=== PATIENT | female | born 1980 | race Caucasian/White ===

== ENCOUNTER 2017-03-05 19:19 | Inpatient (IN) | payer MEDICAID ==
[~2017-03-05] VITALS: Ht 165.1 cm; Wt 69.9 kg
[~2017-03-05 19:19] MED LIST: CIPR500T3 PO; MAGN400T7 PO; MULT-6 PO; NICO1PAT10 TD; PANT40TA3 PO; PROM25SU34 PO; THIA100T10 PO; TRAM-28 PO
[2017-03-05] MEDS ORDERED: OXYMETAZOLINE NASAL SPRAY 0.05%, 15ML ONE (19:28)
[2017-03-05] MEDS ORDERED: SODIUM CHLORIDE 0.9% 1,000 ML IV ONE (19:33)
[2017-03-05] MEDS ORDERED: ONDANSETRON 2MG/ML, 2ML ONE (19:44)
[2017-03-05] MEDS ORDERED: PANTOPRAZOLE 40 MG IV ONE (19:44)
[2017-03-05] MEDS ORDERED: HYDROmorphone 1 MG/ML, 1ML ONE ×2 (19:44→21:13)
[2017-03-05] MEDS: HYDROmorphone 1 MG/ML, 1ML IVPush PRN ×2 (19:52→21:15)
[2017-03-05] MEDS ORDERED: SODIUM CHLORIDE 0.9% 1,000ML IVBOLUS ONE ×2 (20:00→21:00)
[2017-03-05] MEDS ORDERED: ONDANSETRON 2MG/ML, 2ML IVPush ONE (20:00)
[2017-03-05] MEDS ORDERED: SODIUM CHLORIDE FLUSH 10ML SYR IVF ONE (20:00)
[2017-03-05] MEDS ORDERED: PANTOPRAZOLE 40 MG IV IVPush ONE (20:00)
[2017-03-05 20:12] LABS: ASPARTATE AMINO TRANSFERASE 95 U/L (15-37); BLOOD UREA NITROGEN 11 mg/dL (7-18)
[2017-03-05] MEDS ORDERED: LORazepam 2 MG/ML, 1ML ONE (20:33)
[2017-03-05] MEDS ORDERED: LORazepam 2 MG/ML, 1ML IVPush ONE (21:00)
[2017-03-05] MEDS ORDERED: THIAMINE 100 MG/ML, 2ML IM ONE (21:00)
[2017-03-05] MEDS ORDERED: SODIUM CHLORIDE 0.9% 1,000 ML IV SCH (21:19)
[2017-03-05] MEDS ORDERED: THIAMINE 100MG TABLET ONE (21:28)
[2017-03-05] MEDS ORDERED: LABETALOL 5MG/ML, 20ML IVPush PRN (21:30)
[2017-03-05] MEDS ORDERED: ACETAMINOPHEN 325 MG TABLET PO PRN (21:30)
[2017-03-05] MEDS ORDERED: hydrALAzine 20 MG/ML, 1ML IV PRN (21:30)
[2017-03-05] MEDS ORDERED: DOCUSATE 100 MG CAPSULE PO PRN (21:30)
[2017-03-05] MEDS ORDERED: LORazepam 2 MG/ML, 1ML IV PRN ×3 (21:30)
[2017-03-05] MEDS ORDERED: ENALAPRILAT 1.25 MG/ML, 2ML IV PRN (21:30)
[2017-03-05] MEDS ORDERED: ONDANSETRON 2MG/ML, 2ML IVPush PRN (21:30)
[2017-03-05] MEDS ORDERED: POLYETHYLENE GLYCOL 17 GM PACKET PO PRN (21:30)
[2017-03-05] MEDS ORDERED: LORazepam 0.5MG TABLET PO PRN (21:30)
[2017-03-05] MEDS ORDERED: THIAMINE 100MG TABLET PO ONE (22:00)
[2017-03-05] MEDS: LORazepam 1MG TABLET PO PRN (22:49)
[2017-03-05] MEDS: FAMOTIDINE 20 MG TABLET PO SCH (23:05)
[2017-03-05] MEDS: AMPICILLIN/SULBACTAM 3 GM in SODIUM CHLORIDE 0.9% 100 ML IV SCH (23:05)
[2017-03-05] MEDS: NICOTINE 14MG/24 HR PATCH.TD24 TD SCH (23:05)
[2017-03-05 23:11] VITALS: BP 142/99
[2017-03-06] MEDS: OXYcodone IR 5MG TABLET PO PRN ×4 (00:21→22:33)
[2017-03-06 02:46] VITALS: BP 145/83
[2017-03-06] MEDS: LORazepam 1MG TABLET PO PRN ×5 (03:44→17:53)
[2017-03-06] MEDS: AMPICILLIN/SULBACTAM 3 GM in SODIUM CHLORIDE 0.9% 100 ML IV SCH ×3 (04:54→17:52)
[2017-03-06 05:47] LABS: BLOOD UREA NITROGEN 11 mg/dL (7-18)
[2017-03-06 07:00] VITALS: BP 140/97
[2017-03-06] MEDS: MULTIVITAMINS/MINERALS TABLET PO SCH (09:14)
[2017-03-06] MEDS: FOLIC ACID 1 MG TABLET PO SCH (09:14)
[2017-03-06] MEDS: FAMOTIDINE 20 MG TABLET PO SCH ×2 (09:14→20:28)
[2017-03-06] MEDS: THIAMINE 100MG TABLET PO SCH (09:14)
[2017-03-06 13:59] VITALS: BP 143/80
[2017-03-06] MEDS: NICOTINE 14MG/24 HR PATCH.TD24 TD SCH (20:28)
[2017-03-06 21:05] VITALS: BP 138/98
[2017-03-07] MEDS: AMPICILLIN/SULBACTAM 3 GM in SODIUM CHLORIDE 0.9% 100 ML IV SCH ×4 (00:39→20:14)
[2017-03-07] MEDS: LORazepam 1MG TABLET PO PRN ×3 (01:16→13:24)
[2017-03-07 01:51] VITALS: BP 130/98
[2017-03-07] MEDS: OXYcodone IR 5MG TABLET PO PRN ×3 (03:25→20:14)
[2017-03-07 07:50] VITALS: BP 126/91
[2017-03-07] MEDS: MULTIVITAMINS/MINERALS TABLET PO SCH (10:43)
[2017-03-07] MEDS: FAMOTIDINE 20 MG TABLET PO SCH ×2 (10:43→20:14)
[2017-03-07] MEDS: THIAMINE 100MG TABLET PO SCH (10:43)
[2017-03-07] MEDS: FOLIC ACID 1 MG TABLET PO SCH (10:43)
[2017-03-07 12:55] VITALS: BP 108/69
[2017-03-07] MEDS: NICOTINE 14MG/24 HR PATCH.TD24 TD SCH (20:15)
[2017-03-07 20:32] VITALS: BP 144/97
[2017-03-08 00:10] VITALS: BP 152/99
[2017-03-08] MEDS: OXYcodone IR 5MG TABLET PO PRN ×5 (00:23→20:04)
[2017-03-08] MEDS: AMPICILLIN/SULBACTAM 3 GM in SODIUM CHLORIDE 0.9% 100 ML IV SCH ×4 (02:05→20:00)
[2017-03-08] MEDS ORDERED: ONDANSETRON ODT 4 MG ONE (04:19)
[2017-03-08 07:43] VITALS: BP 138/95
[2017-03-08] MEDS: THIAMINE 100MG TABLET PO SCH (08:03)
[2017-03-08] MEDS: MULTIVITAMINS/MINERALS TABLET PO SCH (08:03)
[2017-03-08] MEDS: FOLIC ACID 1 MG TABLET PO SCH (08:03)
[2017-03-08] MEDS: FAMOTIDINE 20 MG TABLET PO SCH ×2 (08:03→19:59)
[2017-03-08 14:16] VITALS: BP 122/78
[2017-03-08] MEDS ORDERED: POLYETHYLENE GLYCOL 17 GM PACKET PO PRN (18:30)
[2017-03-08] MEDS ORDERED: ENALAPRILAT 1.25 MG/ML, 2ML IV PRN (18:30)
[2017-03-08] MEDS ORDERED: LABETALOL 5MG/ML, 20ML IVPush PRN (18:30)
[2017-03-08] MEDS ORDERED: DOCUSATE 100 MG CAPSULE PO PRN (18:30)
[2017-03-08] MEDS ORDERED: LORazepam 2 MG/ML, 1ML IV PRN ×3 (18:30)
[2017-03-08] MEDS ORDERED: hydrALAzine 20 MG/ML, 1ML IV PRN (18:30)
[2017-03-08] MEDS ORDERED: ACETAMINOPHEN 325 MG TABLET PO PRN (18:30)
[2017-03-08] MEDS ORDERED: LORazepam 0.5MG TABLET PO PRN (18:30)
[2017-03-08] MEDS ORDERED: ONDANSETRON 2MG/ML, 2ML IVPush PRN (18:30)
[2017-03-08 19:57] VITALS: BP 130/88
[2017-03-08] MEDS: NICOTINE 14MG/24 HR PATCH.TD24 TD SCH (19:59)
[2017-03-09] MEDS: AMPICILLIN/SULBACTAM 3 GM in SODIUM CHLORIDE 0.9% 100 ML IV SCH ×2 (01:38→07:30)
[2017-03-09] MEDS: OXYcodone IR 5MG TABLET PO PRN ×5 (01:38→21:03)
[2017-03-09 01:55] VITALS: BP 123/77
[2017-03-09 07:22] VITALS: BP 109/70
[2017-03-09] MEDS: MULTIVITAMINS/MINERALS TABLET PO SCH (08:03)
[2017-03-09] MEDS: FOLIC ACID 1 MG TABLET PO SCH (08:03)
[2017-03-09] MEDS: FAMOTIDINE 20 MG TABLET PO SCH ×2 (08:03→21:01)
[2017-03-09] MEDS: THIAMINE 100MG TABLET PO SCH (08:03)
[2017-03-09 12:37] LABS: ASPARTATE AMINO TRANSFERASE 39 U/L (15-37); BLOOD UREA NITROGEN 4 mg/dL (7-18)
[2017-03-09 12:57] VITALS: BP 129/97
[2017-03-09] MEDS ORDERED: POTASSIUM CHLORIDE 20 MEQ TAB.ER.PRT PO ONE (15:00)
[2017-03-09] MEDS: LACTOBACILLUS CHEW TABLET PO SCH ×2 (15:41→21:01)
[2017-03-09 21:00] VITALS: BP 130/99
[2017-03-09] MEDS: AMOXICILLIN/CLAV 875-125MG TABLET PO SCH (21:01)
[2017-03-09] MEDS: NICOTINE 14MG/24 HR PATCH.TD24 TD SCH (21:02)
[2017-03-10 03:33] VITALS: BP 146/99
[2017-03-10] MEDS: OXYcodone IR 5MG TABLET PO PRN ×2 (03:36→07:53)
[2017-03-10 06:36] VITALS: BP 142/98
[2017-03-10] MEDS: THIAMINE 100MG TABLET PO SCH (07:52)
[2017-03-10] MEDS: FAMOTIDINE 20 MG TABLET PO SCH (07:52)
[2017-03-10] MEDS: LACTOBACILLUS CHEW TABLET PO SCH (07:52)
[2017-03-10] MEDS: FOLIC ACID 1 MG TABLET PO SCH (07:53)
[2017-03-10] MEDS: AMOXICILLIN/CLAV 875-125MG TABLET PO SCH (07:53)
[2017-03-10] MEDS ORDERED: FAMO20TA7 PO (09:12)
[2017-03-10] MEDS ORDERED: THIA100T6 PO (09:12)
[2017-03-10] MEDS ORDERED: NICO1PAT4 TD (09:12)
[2017-03-10] MEDS ORDERED: FOLI-17 PO (09:12)
[2017-03-10] MEDS ORDERED: ACID1TAB7 PO (09:12)
[2017-03-10] MEDS ORDERED: AMOX1TAB12 PO (09:12)
== END 2017-03-10 10:45 | disposition home or self-care (01) | DRG 603 ==
LOC: ED 20:10 → EDIP 21:08 → 4WST 22:33
PROVIDERS: ADMIT Family Medicine; ATTEND Family Medicine
DX: L03.032 Cellulitis of left toe (principal); F10.239 Alcohol dependence with withdrawal, unspecified; K70.30 Alcoholic cirrhosis of liver without ascites; F17.210 Nicotine dependence, cigarettes, uncomplicated; R04.0 Epistaxis; K29.20 Alcoholic gastritis without bleeding; Z71.41 Alcohol abuse counseling and surveillance of alcoholic; Z90.49 Acquired absence of other specified parts of digestive tract; Z83.3 Family history of diabetes mellitus; Z88.5 Allergy status to narcotic agent; Z88.8 Allergy status to other drugs, medicaments and biological substances; Z91.030 Bee allergy status
CPT/HCPCS: 36415; 80048; 80053; 80307; 83690; 84703; 85025; 85610; 85730; 86850; 86900; 87040; 87070; 87077; 87186; 87205; 93005; 96361; 96374; 96375; 96376; J0295; J1170; J2405; C9113; J2060; J7030

== ENCOUNTER 2017-03-17 01:28 | Emergency (ER) | payer MEDICAID ==
[~2017-03-17] VITALS: Ht 165.1 cm; Wt 67.4 kg
[~2017-03-17 01:28] MED LIST changes: +ACID1TAB7 PO; +AMOX1TAB12 PO; +FAMO20TA7 PO; +FOLI-17 PO; +NICO1PAT4 TD; +THIA100T6 PO
[2017-03-17] MEDS ORDERED: HYDROmorphone 1 MG/ML, 1ML ONE (01:50)
[2017-03-17] MEDS ORDERED: HYDROmorphone 1 MG/ML, 1ML IVPush PRN (02:00)
[2017-03-17 03:45] VITALS: BP 122/73
== END 2017-03-17 03:48 | disposition home or self-care (01) ==
LOC: ED 01:42
DX: S63.522A Sprain of radiocarpal joint of left wrist, initial encounter (principal); S39.012A Strain of muscle, fascia and tendon of lower back, initial encounter; S50.02XA Contusion of left elbow, initial encounter; I10 Essential (primary) hypertension; E78.00 Pure hypercholesterolemia, unspecified; W01.0XXA Fall on same level from slipping, tripping and stumbling without subsequent striking against object, initial encounter; Y93.89 Activity, other specified; Y92.009 Unspecified place in unspecified non-institutional (private) residence as the place of occurrence of the external cause; Y99.9 Unspecified external cause status
CPT/HCPCS: 29125; 72110; 73090; 73110; 73130; 73630; 96374; 99284; J1170

== ENCOUNTER 2017-04-09 11:41 | Emergency (ER) | payer MEDICAID ==
[~2017-04-09] VITALS: Ht 165.1 cm; Wt 64.0 kg
[~2017-04-09 11:41] MED LIST changes: +NICO1PAT13 TD; -NICO1PAT4 TD; -TRAM-28 PO; +TRAM-47 PO
[2017-04-09] MEDS ORDERED: SODIUM CHLORIDE 0.9% 1,000 ML IV ONE (11:51)
[2017-04-09] MEDS ORDERED: SODIUM CHLORIDE 0.9% 1,000ML IVBOLUS ONE (12:00)
[2017-04-09] MEDS ORDERED: ONDANSETRON 2MG/ML, 2ML IVPush ONE (12:00)
[2017-04-09] MEDS ORDERED: FAMOTIDINE 20 MG/2 ML IVP ONE (12:00)
[2017-04-09 12:07] LABS: HEMATOCRIT 41.4 % (34.6-47.8); HEMOGLOBIN 14.3 g/dL (11.7-16.4); WHITE BLOOD COUNT 6.4 x10^3/uL (3.4-10)
[2017-04-09 12:18] LABS: ASPARTATE AMINO TRANSFERASE 59 U/L (15-37); BLOOD UREA NITROGEN 6 mg/dL (7-18)
[2017-04-09 12:49] VITALS: BP 113/74
== END 2017-04-09 12:51 | disposition home or self-care (01) ==
LOC: ED 12:30
DX: L03.032 Cellulitis of left toe (principal); B35.3 Tinea pedis; K29.20 Alcoholic gastritis without bleeding; E78.00 Pure hypercholesterolemia, unspecified; W20.8XXA Other cause of strike by thrown, projected or falling object, initial encounter; Y93.89 Activity, other specified; Y99.8 Other external cause status; Y92.009 Unspecified place in unspecified non-institutional (private) residence as the place of occurrence of the external cause
CPT/HCPCS: 36415; 80053; 83690; 85025; 99285

== ENCOUNTER 2018-02-02 02:42 | Emergency (ER) | payer MEDICAID, OTHER ==
[~2018-02-02] VITALS: Ht 165.1 cm; Wt 64.0 kg
[~2018-02-02 02:42] MED LIST changes: +NICO-485 TD; +NICO-486 TD; -NICO1PAT10 TD; -NICO1PAT13 TD
[2018-02-02] MEDS ORDERED: PROMETHAZINE 25 MG/ML, 1ML ONE (02:53)
[2018-02-02] MEDS ORDERED: HYDROmorphone 2 MG/ML, 1ML ONE (02:54)
[2018-02-02] MEDS ORDERED: THIAMINE 100 MG/ML, 2ML ONE (02:54)
[2018-02-02] MEDS ORDERED: LORazepam 2 MG/ML, 1ML ONE (02:54)
[2018-02-02] MEDS ORDERED: ONDANSETRON 2MG/ML, 2ML ONE (02:55)
[2018-02-02] MEDS ORDERED: ONDANSETRON 2MG/ML, 2ML IVPush ONE (03:00)
[2018-02-02] MEDS ORDERED: SODIUM CHLORIDE 0.9% 1,000ML IVBOLUS ONE ×2 (03:00)
[2018-02-02] MEDS ORDERED: PROMETHAZINE 25 MG/ML, 1ML IM ONE (03:00)
[2018-02-02] MEDS ORDERED: MORPHINE SULFATE 4 MG/ML, 1ML IVPush PRN (03:00)
[2018-02-02] MEDS ORDERED: LORazepam 2 MG/ML, 1ML IVPush PRN (03:00)
[2018-02-02] MEDS ORDERED: THIAMINE 100 MG/ML, 2ML IM ONE (03:00)
[2018-02-02] MEDS ORDERED: SODIUM CHLORIDE FLUSH 10ML SYR IVF ONE (03:00)
[2018-02-02] MEDS ORDERED: HYDROmorphone 2 MG/ML, 1ML IVPush ONE (03:00)
[2018-02-02 03:17] LABS: BASOPHILS # (AUTO) 0.07 x10^3/uL (0-0.1); BASOPHILS % (AUTO) 1 % (0-1); EOSINOPHILS % (AUTO) 1 % (1-7); LYMPHOCYTES # (AUTO) 3.03 x10^3/uL (1-3.4); LYMPHOCYTES % (AUTO) 32 % (22-44); MD NO; MEAN CORPUSCULAR HGB CONC 34.6 g/dL (32.4-35.8); MEAN CORPUSCULAR VOLUME 92.4 fL (80-100); MEAN PLATELET VOLUME 7.6 fL (7.4-10.4); MONOCYTES # (AUTO) 0.67 x10^3/uL (0.2-0.8); MONOCYTES % (AUTO) 7 % (2-9); NEUTROPHILS # (AUTO) 5.68 x10^3/uL (1.8-6.8); NEUTROPHILS % (AUTO) 59 % (42-75); PLATELET COUNT 289 x10^3/uL (130-400); RED BLOOD COUNT 4.69 x10^6/uL (3.82-5.3); RED CELL DISTRIBUTION WIDTH 12.9 % (9.6-15.2)
[2018-02-02 03:25] LABS: ALANINE AMINOTRANSFERASE 21 U/L (12-78); ALBUMIN 3.5 g/dL (3.4-5.0); ANION GAP 9 mmol/L (5-15); CALCIUM 8.1 mg/dL (8.5-10.1); CHLORIDE 107 mmol/L (98-107); CREATININE 0.75 mg/dL (0.55-1.02)
[2018-02-02 03:30] LABS: ALKALINE PHOSPHATASE 101 U/L (45-117); BILIRUBIN,TOTAL 0.5 mg/dL (0.2-1.0); TOTAL PROTEIN 7.1 g/dL (6.4-8.2)
[2018-02-02 04:15] VITALS: BP 139/94
== END 2018-02-02 04:18 | disposition home or self-care (01) ==
LOC: ED 02:55
DX: K29.20 Alcoholic gastritis without bleeding (principal); F10.220 Alcohol dependence with intoxication, uncomplicated; I10 Essential (primary) hypertension; E78.00 Pure hypercholesterolemia, unspecified; F17.200 Nicotine dependence, unspecified, uncomplicated; Z79.899 Other long term (current) drug therapy
CPT/HCPCS: 36415; 80053; 80307; 83690; 84703; 85025; 93005; 96361; 96372; 96374; 96375; 99285; J1170; J2060; J2405; J2550; J3411; J7030

== ENCOUNTER 2018-08-07 23:56 | Emergency (ER) | payer SELFPAY ==
[~2018-08-07] VITALS: Ht 165.1 cm; Wt 80.5 kg
[~2018-08-07 23:56] MED LIST changes: -THIA100T6 PO; +THIA100T67 PO
--- NOTE | 2018-08-08 00:46 | NUR ---
PT REPORTS COUGH AND SOB FOR "A WHILE" REPORTS CONSTANT COUGH.
--- NOTE | 2018-08-08 00:53 | NUR ---
PT ON CARDIAC AND VS MONITORING. CXR COMPLETED.
[2018-08-08] MEDS ORDERED: PROMETHAZINE/COD. 10MG/6.25MG/5 ML ORAL SOL PO ONE (01:00)
[2018-08-08 01:01] LABS: BASOPHILS # (AUTO) 0.15 x10^3/uL (0-0.1); BASOPHILS % (AUTO) 1 % (0-1); EOSINOPHILS # (AUTO) 0.46 x10^3/uL (0-0.4); EOSINOPHILS % (AUTO) 3 % (1-7); LYMPHOCYTES # (AUTO) 3.41 x10^3/uL (1-3.4); LYMPHOCYTES % (AUTO) 21 % (22-44); MD NO; MEAN CORPUSCULAR HEMOGLOBIN 31.9 pg (27.0-34.8); MEAN CORPUSCULAR VOLUME 93.8 fL (80-100); MEAN PLATELET VOLUME 8.6 fL (7.4-10.4); MONOCYTES # (AUTO) 1.12 x10^3/uL (0.2-0.8); MONOCYTES % (AUTO) 7 % (2-9); NEUTROPHILS # (AUTO) 10.97 x10^3/uL (1.8-6.8); NEUTROPHILS % (AUTO) 68 % (42-75); PLATELET COUNT 326 x10^3/uL (130-400); RED BLOOD COUNT 5.34 x10^6/uL (3.82-5.3); RED CELL DISTRIBUTION WIDTH 13.3 % (9.6-15.2)
--- NOTE | 2018-08-08 01:04 | NUR ---
AWAITING MEDS FROM PHARMACY. MEDS REQUESTED.
--- NOTE | 2018-08-08 01:06 | NUR ---
PT REPORTS SHE IS ALLERGIC TO CODIENE, STATES RASH AND ITCHINESS. WILL NOTIFY
[2018-08-08 01:10] LABS: ALANINE AMINOTRANSFERASE 49 U/L (12-78); ALBUMIN 3.9 g/dL (3.4-5.0); ANION GAP 8 mmol/L (5-15); CALCIUM 8.6 mg/dL (8.5-10.1); CHLORIDE 102 mmol/L (98-107); CREATININE 1.03 mg/dL (0.55-1.02)
[2018-08-08 01:14] LABS: ALKALINE PHOSPHATASE 122 U/L (45-117); BILIRUBIN,TOTAL 0.5 mg/dL (0.2-1.0); TOTAL PROTEIN 8.2 g/dL (6.4-8.2); TROPONIN I < 0.015 ng/mL (0.000-0.045)
--- NOTE | 2018-08-08 01:40 | NUR ---
MD to bedside for pt update complete. MD notified of pt allergy to codiene, no new orders.
[2018-08-08 01:57] VITALS: BP 124/61
== END 2018-08-08 02:00 | disposition home or self-care (01) ==
LOC: ED 08-08 01:05
DX: R07.2 Precordial pain (principal); R05 Cough; R06.02 Shortness of breath; E78.00 Pure hypercholesterolemia, unspecified; F15.10 Other stimulant abuse, uncomplicated; Z87.11 Personal history of peptic ulcer disease; Z72.9 Problem related to lifestyle, unspecified
CPT/HCPCS: 36415; 71045; 80053; 84484; 85025; 93005; 99284

== ENCOUNTER 2018-10-14 14:58 | Emergency (ER) | payer SELFPAY ==
[~2018-10-14] VITALS: Ht 165.1 cm; Wt 66.3 kg
[2018-10-14] MEDS ORDERED: KETOROLAC 30 MG/1 ML IM ONE (16:00)
[2018-10-14] MEDS ORDERED: KETOROLAC 30 MG/1 ML ONE (16:06)
[2018-10-14 16:12] LABS: BASOPHILS # (AUTO) 0.01 x10^3/uL (0-0.1); BASOPHILS % (AUTO) 0 % (0-1); EOSINOPHILS # (AUTO) 0.27 x10^3/uL (0-0.4); EOSINOPHILS % (AUTO) 2 % (1-7); LYMPHOCYTES % (AUTO) 15 % (22-44); MD NO; MEAN CORPUSCULAR HEMOGLOBIN 30.6 pg (27.0-34.8); MEAN CORPUSCULAR HGB CONC 33.4 g/dL (32.4-35.8); MEAN CORPUSCULAR VOLUME 91.6 fL (80-100); MEAN PLATELET VOLUME 8.6 fL (7.4-10.4); MONOCYTES # (AUTO) 0.13 x10^3/uL (0.2-0.8); MONOCYTES % (AUTO) 1 % (2-9); NEUTROPHILS # (AUTO) 11.32 x10^3/uL (1.8-6.8); NEUTROPHILS % (AUTO) 83 % (42-75); PLATELET COUNT 258 x10^3/uL (130-400); RED BLOOD COUNT 5.27 x10^6/uL (3.82-5.3); RED CELL DISTRIBUTION WIDTH 14.1 % (9.6-15.2)
[2018-10-14 16:16] LABS: HCT (SEDRATE) 48.3 % (34.6-47.8)
--- NOTE | 2018-10-14 16:16 | NUR ---
MED GIVEN PER ERP ORDER, PT RATES PAIN AT 7/10. URINE COLLECTED/SENT TO LAB. PT PLACED ON HEART MONITOR, BP CUFF, PULSE OX. LABS PENDING. CALL LIGHT WITHIN REACH.
[2018-10-14 16:23] LABS: ALANINE AMINOTRANSFERASE 42 U/L (12-78); ALBUMIN 4.1 g/dL (3.4-5.0); ANION GAP 8 mmol/L (5-15); C-REACTIVE PROTEIN, QUANT 0.21 mg/dL (0.02-0.49); CALCIUM 8.9 mg/dL (8.5-10.1); CHLORIDE 103 mmol/L (98-107); CREATININE 1.11 mg/dL (0.55-1.02)
[2018-10-14 16:27] LABS: ALKALINE PHOSPHATASE 98 U/L (45-117); BILIRUBIN,TOTAL 0.5 mg/dL (0.2-1.0); TOTAL PROTEIN 7.7 g/dL (6.4-8.2); TROPONIN I < 0.015 ng/mL (0.000-0.045)
[2018-10-14 16:31] LABS: CULTURE INDICATED? YES; MICROSCOPIC INDICATED
[2018-10-14 17:04] LABS: AMPHETAMINE SCREEN, URINE Positive (Negative); BARBITURATE SCREEN, URINE Negative (Negative); BENZODIAZEPINE SCREEN, URINE Negative (Negative); CANNABINOID SCREEN, URINE Negative (Negative); COCAINE SCREEN, URINE Negative (Negative); METHADONE SCREEN, URINE Negative (Negative); OPIATE SCREEN, URINE Negative (Negative)
--- NOTE | 2018-10-14 17:36 | NUR ---
ALL RESULTS BACK, PT FOR RECHECK.
[2018-10-14] MEDS ORDERED: HYDROcodone/APAP 5/325 TABLET ONE (18:08)
--- NOTE | 2018-10-14 18:11 | NUR ---
ASSUMED CARE OF PT WHILE PRIMARY RN AT LUNCH. PT MEDICATED FOR PAIN. PT WANTING TO GO HOME.
[2018-10-14 18:18] VITALS: BP 147/100
[2018-10-14] MEDS ORDERED: HYDROcodone/APAP 5/325 TABLET PO ONE (18:30)
== END 2018-10-14 18:21 | disposition home or self-care (01) ==
LOC: ED 17:09
DX: M13.0 Polyarthritis, unspecified (principal); M25.50 Pain in unspecified joint
CPT/HCPCS: 36415; 71045; 80053; 80307; 81001; 83605; 83880; 84484; 85025; 85651; 86140; 87040; 87086; 93005; 96372; 99284; J1885

== ENCOUNTER 2019-07-22 01:43 | Emergency (ER) | payer MEDICAID ==
[~2019-07-22] VITALS: Ht 165.1 cm; Wt 81.9 kg
[~2019-07-22 01:43] MED LIST changes: -MAGN400T7 PO; +MAGN400T9 PO
[2019-07-22 01:45] VITALS: BP 156/88
[2019-07-22] MEDS ORDERED: ACETAMINOPHEN 500 MG TABLET PO ONE (02:30)
[2019-07-22] MEDS ORDERED: IBUPROFEN 600 MG TABLET PO ONE (02:30)
[2019-07-22] MEDS ORDERED: IBUPROFEN 600 MG TABLET ONE (02:32)
[2019-07-22] MEDS ORDERED: ACETAMINOPHEN 500 MG TABLET ONE (02:32)
--- NOTE | 2019-07-22 02:35 | NUR ---
PT MEDICATED PER EMAR AND PROVIDED PO FLUIDS.
[2019-07-22 03:26] LABS: RAPID INFLUENZA A Negative (Negative); RAPID INFLUENZA B Negative (Negative)
== END 2019-07-22 04:36 | disposition home or self-care (01) ==
LOC: ED 04:19
DX: J06.9 Acute upper respiratory infection, unspecified (principal); I10 Essential (primary) hypertension; E78.00 Pure hypercholesterolemia, unspecified; Z90.89 Acquired absence of other organs; F17.200 Nicotine dependence, unspecified, uncomplicated
CPT/HCPCS: 71045; 87400; 93005; 99284

== ENCOUNTER 2019-09-13 09:32 | Emergency (ER) | payer MEDICAID ==
[~2019-09-13] VITALS: Ht 165.1 cm; Wt 75.0 kg
--- NOTE | 2019-09-13 09:45 | NUR ---
shoshana. report received from ems. pt c/o productive cough/body ache/chills for 2 days. pt's aox4. resps even and unlabored. bp/spo2 monitors in place. call light within reach. 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 edmd at bedside to evaluate at this time.
[2019-09-13] MEDS ORDERED: KETOROLAC 30 MG/1 ML ONE (09:47)
[2019-09-13] MEDS ORDERED: ACETAMINOPHEN 500 MG TABLET ONE (09:47)
[2019-09-13] MEDS ORDERED: SODIUM CHLORIDE FLUSH 10ML SYR IVF ONE (10:00)
[2019-09-13] MEDS ORDERED: ACETAMINOPHEN 500 MG TABLET PO ONE (10:00)
[2019-09-13] MEDS ORDERED: SODIUM CHLORIDE 0.9% 1,000ML IVBOLUS ONE (10:00)
[2019-09-13] MEDS ORDERED: KETOROLAC 30 MG/1 ML IVPush ONE (10:00)
--- NOTE | 2019-09-13 10:18 | NUR ---
pt medicated per emar. pt tolerated well. ns infusing at this time.
[2019-09-13 10:23] LABS: RAPID INFLUENZA A POSITIVE (Negative); RAPID INFLUENZA B Negative (Negative)
[2019-09-13 10:24] LABS: BASOPHILS # (AUTO) 0.05 x10^3/uL (0-0.1); BASOPHILS % (AUTO) 1 % (0-1); EOSINOPHILS # (AUTO) 0.06 x10^3/uL (0-0.4); EOSINOPHILS % (AUTO) 1 % (1-7); LYMPHOCYTES # (AUTO) 0.86 x10^3/uL (1-3.4); LYMPHOCYTES % (AUTO) 12 % (22-44); MD NO; MEAN CORPUSCULAR HGB CONC 33.8 g/dL (32.4-35.8); MEAN CORPUSCULAR VOLUME 100.6 fL (80-100); MEAN PLATELET VOLUME 8.1 fL (7.4-10.4); MONOCYTES # (AUTO) 0.97 x10^3/uL (0.2-0.8); MONOCYTES % (AUTO) 13 % (2-9); NEUTROPHILS # (AUTO) 5.45 x10^3/uL (1.8-6.8); NEUTROPHILS % (AUTO) 74 % (42-75); PLATELET COUNT 213 x10^3/uL (130-400); RED BLOOD COUNT 4.43 x10^6/uL (3.82-5.3)
[2019-09-13 10:41] LABS: ALANINE AMINOTRANSFERASE 91 U/L (12-78); ALBUMIN 3.5 g/dL (3.4-5.0); ANION GAP 11 mmol/L (5-15); CALCIUM 8.7 mg/dL (8.5-10.1); CHLORIDE 107 mmol/L (98-107); CREATININE 0.87 mg/dL (0.55-1.02)
[2019-09-13 10:44] LABS: ALKALINE PHOSPHATASE 141 U/L (45-117); BILIRUBIN,TOTAL 0.4 mg/dL (0.2-1.0); TOTAL PROTEIN 7.6 g/dL (6.4-8.2)
[2019-09-13 11:08] VITALS: BP 123/77
--- NOTE | 2019-09-13 11:12 | NUR ---
Patient given discharge instructions and they have confirmed that they understand the instructions. Patient ambulatory with steady gait.
== END 2019-09-13 11:24 | disposition home or self-care (01) ==
LOC: ED 11:16
DX: J10.1 Influenza due to other identified influenza virus with other respiratory manifestations (principal); J45.909 Unspecified asthma, uncomplicated; R00.0 Tachycardia, unspecified; I10 Essential (primary) hypertension; E78.00 Pure hypercholesterolemia, unspecified; Z90.89 Acquired absence of other organs; Z88.1 Allergy status to other antibiotic agents; Z88.6 Allergy status to analgesic agent
CPT/HCPCS: 36415; 71045; 80053; 83605; 84145; 85025; 87400; 93005; 96374; 99285; J1885; J7030

== ENCOUNTER 2019-09-18 15:10 | Emergency (ER) | payer MEDICAID ==
[~2019-09-18] VITALS: Ht 165.1 cm; Wt 80.2 kg
[2019-09-18] MEDS ORDERED: IBUP-1902 PO (15:38)
[2019-09-18 16:12] VITALS: BP 124/92
[2019-09-18] MEDS ORDERED: KETOROLAC 30 MG/1 ML IM ONE (16:30)
[2019-09-18] MEDS ORDERED: KETOROLAC 60 MG/2 ML ONE (16:44)
--- NOTE | 2019-09-18 17:04 | NUR ---
Patient given discharge instructions and they have confirmed that they understand the instructions. Patient ambulatory with steady gait.
== END 2019-09-18 17:00 | disposition home or self-care (01) ==
LOC: ED 15:45
DX: J02.9 Acute pharyngitis, unspecified (principal); F17.200 Nicotine dependence, unspecified, uncomplicated; I10 Essential (primary) hypertension; J45.909 Unspecified asthma, uncomplicated; E78.00 Pure hypercholesterolemia, unspecified
CPT/HCPCS: 71046; 96372; 99283; J1885

== ENCOUNTER 2020-02-08 10:31 | Emergency (ER) | payer MEDICAID ==
[~2020-02-08] VITALS: Ht 165.1 cm; Wt 70.0 kg
[~2020-02-08 10:31] MED LIST changes: +IBUP-1902 PO
--- NOTE | 2020-02-08 10:55 | NUR ---
PT REPORT FROM ASA GARRIDO. PT CARE TO BE ASSUMED. PT TO U/S PER CASIE
[2020-02-08] MEDS ORDERED: PHENAZOPYRIDINE 200 MG TABLET PO ONE (11:00)
[2020-02-08] MEDS ORDERED: KETOROLAC 30 MG/1 ML IVPush ONE (11:00)
[2020-02-08] MEDS ORDERED: SODIUM CHLORIDE 0.9% 1,000ML IVBOLUS ONE ×2 (11:00→13:00)
[2020-02-08] MEDS ORDERED: SODIUM CHLORIDE FLUSH 10ML SYR IVF ONE (11:00)
[2020-02-08] MEDS ORDERED: PLEASE ENTER HEIGHT AND WEIGHT MC SCH (11:00)
[2020-02-08] MEDS ORDERED: KETOROLAC 30 MG/1 ML ONE (11:18)
[2020-02-08] MEDS ORDERED: PHENAZOPYRIDINE 200 MG TABLET ONE (11:18)
[2020-02-08 11:33] LABS: MICROSCOPIC INDICATED
--- NOTE | 2020-02-08 11:38 | NUR ---
NS HUNG. TORADOL AND PYRIDIUM GIVEN PER EMAR. PT C/O LLQ PAIN X "A COUPLE OF WEEKS". +N/V. DENIES DIARRHEA, CONSTIPATION, HX STD. LAST BM: TODAY. LMP: AGE 35. PARTIAL HYSTERECTOMY. LAST ORAL INTAKE: FOOD LAST NOC.
[2020-02-08 12:04] LABS: MEAN CORPUSCULAR HEMOGLOBIN 36.1 pg (27.0-34.8); MEAN CORPUSCULAR HGB CONC 33.3 g/dL (32.4-35.8); MEAN CORPUSCULAR VOLUME 108.3 fL (80-100); MEAN PLATELET VOLUME 8.1 fL (7.4-10.4); PLATELET COUNT 214 x10^3/uL (130-400); RED BLOOD COUNT 3.72 x10^6/uL (3.82-5.3); RED CELL DISTRIBUTION WIDTH 17.4 % (9.6-15.2)
[2020-02-08 12:09] LABS: ANION GAP 8 mmol/L (5-15); CALCIUM 8.3 mg/dL (8.5-10.1); CHLORIDE 99 mmol/L (98-107); CREATININE 0.75 mg/dL (0.55-1.02)
[2020-02-08 12:22] LABS: BASOPHILS # (AUTO) 0.01 x10^3/uL (0-0.1); BASOPHILS % (AUTO) 0 % (0-1); EOSINOPHILS # (AUTO) 0.04 x10^3/uL (0-0.4); EOSINOPHILS % (AUTO) 0 % (1-7); LYMPHOCYTES # (AUTO) 1.41 x10^3/uL (1-3.4); LYMPHOCYTES % (AUTO) 14 % (22-44); MD SCAN; MONOCYTES # (AUTO) 1.08 x10^3/uL (0.2-0.8); MONOCYTES % (AUTO) 10 % (2-9); NEUTROPHILS # (AUTO) 7.91 x10^3/uL (1.8-6.8); NEUTROPHILS % (AUTO) 76 % (42-75)
--- NOTE | 2020-02-08 12:35 | NUR ---
PER PT'S SIG OTHER, PT IN CONTINUING PAIN. WILL NOTIFY ERP.
[2020-02-08] MEDS ORDERED: ACETAMINOPHEN 500 MG TABLET PO ONE (13:00)
[2020-02-08] MEDS ORDERED: CEFTRIAXONE PMX 1GM/50ML 50 ML IV ONE (13:00)
[2020-02-08] MEDS ORDERED: CEFTRIAXONE PMX 1GM/50ML 50 ML ONE (13:06)
[2020-02-08] MEDS ORDERED: HYDROmorphone 1 MG/ML, 1ML INJ ONE (13:06)
[2020-02-08] MEDS ORDERED: ACETAMINOPHEN 500 MG TABLET ONE (13:07)
--- NOTE | 2020-02-08 13:25 | NUR ---
NS BOLUS #1 STILL INFUSING; PT INSTRUCTED NOT TO BEND RT ARM TOO TIGHTLY FOR IV INFUSION PURPOSE; UNDERSTANDING VERBALIZED. TYLENOL AND DILAUDID GIVEN PER EMAR.
[2020-02-08] MEDS ORDERED: HYDROmorphone 1 MG/ML, 1ML INJ IV ONE (13:30)
--- NOTE | 2020-02-08 13:35 | NUR ---
LINNETTE MUNOZ, INFUSING AT 100ML/HR VIA PUMP. IV SITE PATENT.
--- NOTE | 2020-02-08 13:45 | NUR ---
TO CT PER CASIE
--- NOTE | 2020-02-08 14:08 | NUR ---
ROCEPHIN AND NS BOLUS #1 COMPLETED. 2ND NS BOLUS HUNG.
--- NOTE | 2020-02-08 15:15 | NUR ---
PT REPORTS SOME RELIEF OF PAIN
--- NOTE | 2020-02-08 15:48 | NUR ---
Note dee in ED - 02/08/20 at 1548 by LARA AMBULATORY TO & FROM ROOM BR W/ ASSIST FROM THIS RN. VOIDED SPECIMEN PROVIDED: CLOUDY YELLOW.
[2020-02-08 15:50] VITALS: BP 120/80
== END 2020-02-08 15:53 | disposition home or self-care (01) ==
LOC: ED 12:07
DX: N83.292 Other ovarian cyst, left side (principal); N30.00 Acute cystitis without hematuria; R10.32 Left lower quadrant pain; R00.0 Tachycardia, unspecified; R31.9 Hematuria, unspecified; I10 Essential (primary) hypertension
CPT/HCPCS: 36415; 74176; 76830; 80048; 81001; 82040; 83605; 85025; 87086; 96365; 96375; 99285; J0696; J1170; J1885; J7030

== ENCOUNTER 2020-05-06 23:55 | Emergency (ER) | payer MEDICAID ==
[2020-05-07] MEDS ORDERED: ONDANSETRON ODT 4 MG ONE (00:06)
[2020-05-07] MEDS ORDERED: ONDANSETRON ODT 4 MG PO ONE (00:30)
[2020-05-07 01:57] VITALS: BP 141/90
--- NOTE | 2020-05-07 01:57 | NUR ---
pt ambulatory to the discharge desk with a steady gait. provided taxi voucher
== END 2020-05-07 01:59 | disposition home or self-care (01) ==
LOC: ED 05-07 01:54
DX: T51.91XA Toxic effect of unspecified alcohol, accidental (unintentional), initial encounter (principal); T40.1X1A Poisoning by heroin, accidental (unintentional), initial encounter; F10.10 Alcohol abuse, uncomplicated; F11.10 Opioid abuse, uncomplicated; F15.10 Other stimulant abuse, uncomplicated; R00.0 Tachycardia, unspecified; J45.909 Unspecified asthma, uncomplicated; I10 Essential (primary) hypertension; F17.210 Nicotine dependence, cigarettes, uncomplicated; Z72.9 Problem related to lifestyle, unspecified; Z90.49 Acquired absence of other specified parts of digestive tract; Y90.9 Presence of alcohol in blood, level not specified; Y92.89 Other specified places as the place of occurrence of the external cause
CPT/HCPCS: 93005; 99283; 99406; Q0162

== ENCOUNTER 2020-06-03 13:18 | Emergency (ER) | payer MEDICAID ==
[~2020-06-03] VITALS: Ht 165.1 cm; Wt 72.7 kg
[2020-06-03 13:24] VITALS: BP 158/97
[2020-06-03] MEDS ORDERED: L.E.T SOLUTION TP ONE ×2 (13:30→13:58)
[2020-06-03] MEDS ORDERED: NEOSPORIN OINT. PKT 1 PACKET ONE (13:50)
== END 2020-06-03 14:36 | disposition home or self-care (01) ==
LOC: ED 14:08
DX: S80.811A Abrasion, right lower leg, initial encounter (principal); L03.115 Cellulitis of right lower limb; J45.909 Unspecified asthma, uncomplicated; I10 Essential (primary) hypertension; F17.200 Nicotine dependence, unspecified, uncomplicated; Z87.11 Personal history of peptic ulcer disease; R00.0 Tachycardia, unspecified; W01.0XXA Fall on same level from slipping, tripping and stumbling without subsequent striking against object, initial encounter; Y93.89 Activity, other specified; Y92.410 Unspecified street and highway as the place of occurrence of the external cause; Y99.8 Other external cause status
CPT/HCPCS: 82962; 99283

== ENCOUNTER 2020-10-06 19:27 | Emergency (ER) | payer MEDICAID ==
[~2020-10-06] VITALS: Ht 165.1 cm; Wt 70.0 kg
[~2020-10-06 19:27] MED LIST changes: -CIPR500T3 PO; +CIPR500T4 PO; -FOLI-17 PO; +FOLI1TAB32 PO
--- NOTE | 2020-10-06 19:39 | NUR ---
pt bib ems for epistaxis x1hr, states shes filled towels with blood today. pt bleeding is controlled at this time, nose clamp applied, pt also states "i am peeing blood and my flanks and sides hurt". 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 pt ambulated to and from restroom with a smooth and steady gait to obtain urine sample, nad, denies additional needs, placed on spo2/bp monitoring at this time. wctm.
[2020-10-06] MEDS ORDERED: OXYMETAZOLINE NASAL SPRAY 0.05%,30ML ONE (19:52)
[2020-10-06] MEDS ORDERED: NEOSPORIN OINT. PKT 1 PACKET ONE (19:52)
[2020-10-06] MEDS ORDERED: SILVER NITRATE STICK TP ONE ×2 (19:52→20:00)
[2020-10-06] MEDS ORDERED: LIDOCAINE-MPF 2% ,5ML ONE (19:54)
[2020-10-06] MEDS ORDERED: TRANEXAMIC ACID 100 MG/ML, 10ML ONE (19:54)
[2020-10-06] MEDS ORDERED: TRANEXAMIC ACID 100 MG/ML, 10ML TP ONE (20:00)
[2020-10-06] MEDS ORDERED: PHENYLEPHRINE NASAL 1%, 30ML DROPS NAS ONE (20:00)
[2020-10-06] MEDS ORDERED: LIDOCAINE-MPF 2%, 2ML INFIL ONE (20:00)
[2020-10-06 20:17] VITALS: BP 116/65
--- NOTE | 2020-10-06 20:38 | NUR ---
Patient given discharge instructions and they have confirmed that they understand the instructions. Patient ambulatory with steady gait. nad, denies additional needs, states "i dont want to wait to do any tests, im hungry and tired". no personal belongings left in room after dc.
[2020-10-07] MEDS ORDERED: BACITRACIN/POLYMIXIN B SULFATE OINT 14 GM TP SCH (09:00)
== END 2020-10-06 20:40 | disposition home or self-care (01) ==
LOC: ED 20:00
DX: R04.0 Epistaxis (principal); K70.30 Alcoholic cirrhosis of liver without ascites; F10.20 Alcohol dependence, uncomplicated; Y90.9 Presence of alcohol in blood, level not specified
CPT/HCPCS: 99283

== ENCOUNTER 2021-04-23 18:48 | Inpatient (IN) | payer MEDICAID ==
[~2021-04-23] VITALS: Ht 165.1 cm; Wt 70.0 kg
[2021-04-23] MEDS ORDERED: LORazepam 2 MG/ML, 1ML ONE (20:00)
[2021-04-23] MEDS ORDERED: LORazepam 2 MG/ML, 1ML IVPush PRN (20:00)
[2021-04-23 20:07] LABS: BASOPHILS % (AUTO) 1 % (0-1); EOSINOPHILS % (AUTO) 1 % (1-7); LYMPHOCYTES % (AUTO) 17 % (22-44); MEAN CORPUSCULAR HEMOGLOBIN 33.6 pg (27.0-34.8); MEAN CORPUSCULAR HGB CONC 34.3 g/dL (32.4-35.8); MEAN PLATELET VOLUME 7.3 fL (7.4-10.4); MONOCYTES % (AUTO) 8 % (2-9); NEUTROPHILS % (AUTO) 73 % (42-75); PLATELET COUNT 177 x10^3/uL (130-400); RED BLOOD COUNT 4.22 x10^6/uL (3.82-5.3)
[2021-04-23 20:16] LABS: ALANINE AMINOTRANSFERASE 43 U/L (12-78); ALBUMIN 3.4 g/dL (3.4-5.0); ANION GAP 7 mmol/L (5-15); C-REACTIVE PROTEIN, QUANT 0.83 mg/dL (0.02-0.49); CHLORIDE 106 mmol/L (98-107); CREATININE 0.63 mg/dL (0.55-1.02)
[2021-04-23 20:22] LABS: ALKALINE PHOSPHATASE 145 U/L (45-117); BILIRUBIN,TOTAL 2.5 mg/dL (0.2-1.0); TOTAL PROTEIN 9.2 g/dL (6.4-8.2)
[2021-04-23 20:33] LABS: D-DIMER (DIC) 3.17 ug/mlFEU (0.00-0.52); PROTIME 12.7 Seconds (9.6-11.5)
--- NOTE | 2021-04-23 21:00 | NUR ---
RN TO BEDSIDE AFTER USED CALL WRIGHT STATING PATIENT WAS HAVING ANOTHER SEIZURE. RN DID NOT WITNESS SEIZURE WHEN ARRIVED AT BEDSIDE. PATIENT BLINKING. SPO2 89 ON RA. PLACED ON 4LNC. SPO2 NOW 95%. ALL OTHER VITALS STABLE. ER MD AWARE. WILL CONTINUE TO MONITOR.
[2021-04-23 21:01] LABS: AMPHETAMINE SCREEN, URINE Positive (Negative); BARBITURATE SCREEN, URINE Negative (Negative); BENZODIAZEPINE SCREEN, URINE Negative (Negative); CANNABINOID SCREEN, URINE Negative (Negative); COCAINE SCREEN, URINE Negative (Negative); METHADONE SCREEN, URINE Negative (Negative); OPIATE SCREEN, URINE Negative (Negative)
--- NOTE | 2021-04-23 21:12 | NUR ---
PATIENT NOW AWAKE AND TALKING REQUESTING PAIN MEDICATION. MD WILL MAKE MD AWARE.
[2021-04-23 21:16] LABS: MICROSCOPIC INDICATED
[2021-04-23] MEDS ORDERED: CEFTRIAXONE 1,000 MG in DEXTROSE 5% 50 ML IVPB ONE (21:30)
[2021-04-23] MEDS ORDERED: AZITHROMYCIN 500 MG in SODIUM CHLORIDE 0.9% 250 ML IV SCH (21:30)
[2021-04-23] MEDS ORDERED: DEXAMETHASONE 4 MG/ML, 1ML IV ONE (21:30)
[2021-04-23] MEDS ORDERED: DEXAMETHASONE 4 MG/ML, 1ML ONE (21:51)
--- NOTE | 2021-04-23 22:08 | NUR ---
PATIENT MADE AWARE PAIN MEDS HAVE NOT BEEN ORDERED AT THIS TIME. PATIENT UPSET STATING "YOUR HEAD HURTS AFTER YOU HAVE SEIZURES." EXPLAINED TO PATIENT THAT I DONT DECIDE WHETHER SHE GETS PAIN MEDICATION OR NOT. PATIENT ASKING TO SPEAK TO MD. WILL MAKE ERP AWARE.
--- NOTE | 2021-04-23 22:10 | NUR ---
HOSPITALIST PUBLIC ADDRESS TECHNICIAN AT BEDSIDE.
[2021-04-23] MEDS ORDERED: SODIUM CHLORIDE FLUSH 10ML SYR IVF PRN (22:30)
[2021-04-23] MEDS ORDERED: FOLIC ACID 5 MG/ML IM ONE (22:30)
[2021-04-23] MEDS ORDERED: ALUMINUM/MAG/SIMETHICONE 30 ML UDC PO PRN (22:30)
[2021-04-23] MEDS ORDERED: PROMETHAZINE 25 MG/ML, 1ML IM PRN (22:30)
[2021-04-23] MEDS ORDERED: MELATONIN 5 MG TABLET PO SCH (22:30)
[2021-04-23] MEDS ORDERED: OXYcodone IR 5MG TABLET PO PRN (22:30)
[2021-04-23] MEDS ORDERED: ENOXAPARIN 40 MG/0.4 ML SQ SCH (22:30)
[2021-04-23] MEDS ORDERED: LIDODERM 5% PATCH TD PRN (22:30)
[2021-04-23] MEDS ORDERED: LORazepam 2 MG/ML, 1ML IV PRN ×3 (22:30)
[2021-04-23] MEDS ORDERED: KETOROLAC 30 MG/1 ML IV PRN (22:30)
[2021-04-23] MEDS ORDERED: ASCORBIC ACID 250 MG TAB PO SCH (23:00)
--- NOTE | 2021-04-23 23:10 | NUR ---
PATIENT DISCONNECTING IV ABX TO MAKE PHONE CALLS OUTSIDE OF ROOM. EDUCATED PATIENT ON THE IMPORTANCE OF STAYING IN ROOM IN ORDER TO RECEIVE MEDICATION PROPERLY.
[2021-04-23] MEDS ORDERED: ENOXAPARIN 40 MG/0.4 ML ONE (23:19)
[2021-04-23] MEDS ORDERED: MELATONIN 5 MG TABLET ONE (23:19)
[2021-04-23] MEDS ORDERED: KETOROLAC 30 MG/1 ML ONE (23:19)
[2021-04-23] MEDS ORDERED: ASCORBIC ACID 500 MG TABLET ONE (23:51)
--- NOTE | 2021-04-24 00:27 | NUR ---
PATIENT CONTINUES TO DISCONNECT HERSELF FROM MONITOR TO STEP OUT OF ROOM TO MAKE PHONE CALLS.
--- NOTE | 2021-04-24 01:06 | NUR ---
report from karl lópez
--- NOTE | 2021-04-24 01:07 | NUR ---
REPORT GIVEN TO ASA BUSH.
[2021-04-24] MEDS ORDERED: LORazepam 2 MG/ML, 1ML ONE ×3 (01:35→08:44)
[2021-04-24] MEDS: LORazepam 2 MG/ML, 1ML IV PRN ×5 (01:43→12:43)
--- NOTE | 2021-04-24 01:43 | NUR ---
Break RN: patient agitated. keep on getting out of bed. medicated.
[2021-04-24] MEDS ORDERED: LIDODERM 5% PATCH TD ONE (03:40)
[2021-04-24 04:44] LABS: BASOPHILS % (AUTO) 1 % (0-1); EOSINOPHILS % (AUTO) 0 % (1-7); LYMPHOCYTES % (AUTO) 8 % (22-44); MEAN CORPUSCULAR HEMOGLOBIN 33.5 pg (27.0-34.8); MEAN CORPUSCULAR HGB CONC 34.6 g/dL (32.4-35.8); MEAN PLATELET VOLUME 7.5 fL (7.4-10.4); MONOCYTES % (AUTO) 2 % (2-9); NEUTROPHILS % (AUTO) 89 % (42-75); PLATELET COUNT 132 x10^3/uL (130-400); RED CELL DISTRIBUTION WIDTH 14.8 % (9.6-15.2)
[2021-04-24 04:49] LABS: ALANINE AMINOTRANSFERASE 40 U/L (12-78); ALBUMIN 3.3 g/dL (3.4-5.0); ANION GAP 8 mmol/L (5-15); CALCIUM 8.7 mg/dL (8.5-10.1); CHLORIDE 103 mmol/L (98-107)
[2021-04-24 04:52] LABS: ALKALINE PHOSPHATASE 136 U/L (45-117); BILIRUBIN,TOTAL 3.4 mg/dL (0.2-1.0); TOTAL PROTEIN 9.3 g/dL (6.4-8.2)
--- NOTE | 2021-04-24 07:07 | NUR ---
ciwa score 13. this rn assuming care after bedside report. vss. pt anxious.
[2021-04-24] MEDS ORDERED: ZINC SULFATE 220 MG CAPSULE PO SCH (09:00)
[2021-04-24] MEDS ORDERED: CHOLECALCIFEROL 5,000u TAB PO SCH (09:00)
--- NOTE | 2021-04-24 09:16 | NUR ---
LAST CIWA 21. PT MEDICATED APPROPRIOATELY. [facility] AWARE AND AT BEDSIDE.
[2021-04-24 10:23] VITALS: BP 144/86
--- NOTE | 2021-04-24 10:24 | NUR ---
CIWA 8
[2021-04-24] MEDS ORDERED: LORazepam 1MG TABLET ONE ×3 (10:26→12:40)
[2021-04-24] MEDS ORDERED: ACETAMINOPHEN 500 MG TABLET PO PRN (11:30)
[2021-04-24] MEDS ORDERED: BUTALB/APAP/CAFFEINE 50MG/325MG/40MG PO PRN (11:30)
--- NOTE | 2021-04-24 11:32 | NUR ---
cwia 12, pt c/o severe 10/10 saleem and anxiety.
[2021-04-24] MEDS ORDERED: ACETAMINOPHEN 500 MG TABLET ONE (11:33)
--- NOTE | 2021-04-24 12:36 | NUR ---
ciaw score 8. pt with 10/10 headache
[2021-04-24] MEDS ORDERED: KETOROLAC 30 MG/1 ML ONE (12:40)
--- NOTE | 2021-04-24 12:51 | NUR ---
PT HEARD ON PHONE BY THIS RN ASKING SOMEONE TO BRING HER SOMETHING "TO DRINK" THIS RN EDUCATED PT ON VISITATION POLICY AND HOW SHE WILL NOT BE ALLOWED VISTORS. PT MEDICATED PER EMAR FOR HEADACHE AND BASED OF CIWA SCORE. VSS. LUNCH TRAY PROVIDED.
--- NOTE | 2021-04-24 14:14 | NUR ---
RELIEF RN: PT STATES "I NEED TO GET OUT OF HERE..MY HEAD HURTS.. AND THEY'RE HOLDING MY OUT IN THE WAITING ROOM". ATTEMPTING TO EXPLAIN THAT COVID + PT ARE NOT ALLOWED TO HAVE VISITIORS. PT CONTINUES TO INSIST ON LEAVING AMA. ATTEMPTING TO CONTACT HOSPITALIST.
--- NOTE | 2021-04-24 14:17 | NUR ---
RELIEF RN: HOSPITALIST AWARE OF PTS DESIRE TO LEAVE AMA.
--- NOTE | 2021-04-24 14:23 | NUR ---
HECTOR RN: PT SIGNED AMA PAPERS. APPROPRIATE DC. AMBULATORY TO [facility] STEADY GAIT.
[2021-04-24] MEDS ORDERED: ASCORBIC ACID 500 MG TABLET PO SCH (17:00)
[2021-04-24] MEDS ORDERED: CEFTRIAXONE 1,000 MG in DEXTROSE 5% 50 ML IVPB SCH (21:30)
[2021-04-24] MEDS ORDERED: AZITHROMYCIN 500 MG in SODIUM CHLORIDE 0.9% 250 ML IV SCH (21:30)
== END 2021-04-24 14:23 | disposition left against medical advice (07) | DRG 177 ==
LOC: ED 19:40 → EDIP 23:11
PROVIDERS: ADMIT Internal Medicine; ATTEND Hospitalist
DX: U07.1 COVID-19 (principal); J15.9 Unspecified bacterial pneumonia; J12.82 Pneumonia due to coronavirus disease 2019; F10.221 Alcohol dependence with intoxication delirium; E87.2 Acidosis; F17.200 Nicotine dependence, unspecified, uncomplicated; F15.90 Other stimulant use, unspecified, uncomplicated; R56.9 Unspecified convulsions; Y90.8 Blood alcohol level of 240 mg/100 ml or more; Z53.29 Procedure and treatment not carried out because of patient's decision for other reasons; I10 Essential (primary) hypertension; Z88.6 Allergy status to analgesic agent; Z88.5 Allergy status to narcotic agent; Z88.8 Allergy status to other drugs, medicaments and biological substances
CPT/HCPCS: 36415; 71045; 80053; 80307; 80320; 81001; 82728; 83605; 83615; 83735; 84100; 84145; 84702; 85025; 85049; 85379; 85384; 85610; 85730; 86140; 87040; 93005; 96365; 96375; J0456; J0696; J1100; J1650; J1885; G0480; J2060; J7050